=== PATIENT | female | born 1930 | race Caucasian/White ===

== ENCOUNTER → 2016-10-13 | Outpatient (CLI) | payer OTHER, MEDICARE ==
[~2016-10-13] VITALS: Ht 162.6 cm; Wt 51.8 kg
[~2016-10-13] MED LIST: APAP650 PO; ASPIR 8181 MG PO; AUGMENTIN 875875 MG PO; BACTRIM DS TAB1 EACH PO; CITRATE OF MAG296 ML PO; COLACE100 MG PO; FISH OIL 1,001000 M2 PO; HYDROCODON-ACE1 EAC7 PO; HYDROXYZINE HCL25 M1 PO; MOTION SICKNESS25 M1 PO; NABUMETONE 500500 M1 PO; NAPROSYN500 MG PO; PROSTAMEN SOFT1 EACH PO; PROTONIX40 M1 PO; TIZANIDINE HCL 22 M1 PO; TRAMADOL 50 MG50 MG; UNICOMPLEX M TA1 TA1 PO; VITAMIN D2000 UNIT PO; VITAMIN D35000 UNIT PO; VITAMIN E200 UNI4 PO; ZANAFLEX4 MG PO
--- NOTE | ~2016-10-13 | OD ---
[facility] [place] [address] DELIVERY NOTE Name: LOUIS HAY [id number] Admission: 10/13/16 Attend Phys: Zan Louie DO Discharge: Date of : [birth year] Report #: [id number] THIS REPORT FOR: //name// CC: Zan Still MD DATE OF SERVICE: 10/13/2016 DATE OF SERVICE: 10/13/2015 CHIEF COMPLAINT: Neck and head pain. HISTORY OF PRESENT ILLNESS: As you know, the patient is an 86-year-old female with longstanding history of neck and head pain. She apparently was hospitalized for this problem, underwent imaging studies due to vertigo in conjunction with her head and neck pain, for concern of a possible stroke. Findings on the MRI showed no acute findings, though brain atrophy likely age related. It was determined at that point, the patient might be suffering from facet arthropathy of the cervical spine. She was referred to our clinic for evaluation. She indicates no injury, no trauma to the neck or head that may have led to symptoms. She states her pain is continuous, describes the pain as sharp. Places the current pain score at 8/10, daily average at 8/10, worst the pain has been is 8/10. The patient states the pain is exacerbated with movement, improves with pain medication. She has been referred to our clinic to trial injection therapy. PAST MEDICAL HISTORY: 1. Degenerative joint disease. 2. Osteoarthritis. 3. Vertigo, unknown origin. PAST SURGICAL HISTORY: 1. Lung surgery. 2. Cholecystectomy. 3. Appendectomy. SOCIAL HISTORY: The patient denies tobacco, alcohol or IV or illicit drug use. She is retired, retired 20 years ago. She is not receiving workman's compensation nor is she trying to obtain disability benefits. She is not in litigation in regards to her pain. She is accompanied by her , who was present in room today. REVIEW OF SYSTEMS: Positive for weight change, headaches, wearing corrective eyewear, head pain, neck pain, bleeding and bruising tendencies, vertigo. All other review of systems negative per 12-point review of systems other than those [address] [address] DELIVERY NOTE Name: LOUIS HAY Room #: REG [facility].#: [id number] Admission: 10/13/16 Attend Phys: Zan Louie DO Discharge: Date of : [birth year] Report #: [id number] listed in history of present illness. Pain impact score 45/70 indicating moderate interference of daily activities secondary to pain. ALLERGIES: PENICILLIN, CEPHALOSPORINS, CODEINE, AMOXICILLIN. CURRENT MEDICATIONS: Meclizine 25 mg once a day, Tylenol Arthritis 650 mg every 8 hours, multivitamin 1 tab per day, aspirin 81 mg per day, vitamin E 200 units per day, cholecalciferol 5000 units per day, omega-3 fish oil 1000 mg twice a day. IMAGING: CT of head and neck shows ectasia and tortuosity of the carotid arteries in the neck and intracranially, especially on the left without focal aneurysmal dilatation. No focal stenosis or other acute lateralizing abnormalities. There is moderate right maxillary sinus disease, chronic in nature. MRI of cervical spine obtained on 08/27/2016 shows multilevel cervical spondylosis, no significant central canal stenosis, no discrete vocal cord abnormalities. Multilevel right-sided neural foraminal stenosis due to uncovertebral and facet arthropathy, most prominent at C3-C4, moderate to severe neural foraminal stenosis at that level. PHYSICAL EXAMINATION: VITAL SIGNS: Blood pressure 161/90, pulse is 84, respiratory rate 16, unlabored. The patient is 100% on room air. Height 5 feet 4 inches tall, weight 114.2 pounds, BMI calculated at 19.6. GENERAL: Well-developed, well nourished, well hydrated, thin, 86-year-old female appearing stated age, placing pain score today 8/10. HEENT: Normocephalic, atraumatic. Pupils equal, round, reactive to light. Extraocular muscles are intact. Sclerae nonicteric, without injection. Cranial nerves 2-12 grossly intact. Speech is fluent. The patient deemed a fair historian. LUNGS: Clear. No wheezes, rhonchi or rales. CARDIOVASCULAR: Regular. No appreciable gallop or rub. ABDOMEN: Soft, nontender, nondistended, normoactive bowel sounds. EXTREMITIES: Show no clubbing, no cyanosis, no edema. MUSCULOSKELETAL: Upper extremity strength equal and symmetrical 5/5, intact to light touch from C5-T1 dermatomes. Deep tendon reflexes are symmetrical at biceps, brachioradialis and triceps. Spurling's test is negative. There is noted crepitus with movement, with extension, rotation and lateral flexion. Pain is generated with all maneuvers right greater than left. There is palpatory tenderness over the upper cervical region. Deep palpation in the area causes intensification of pain with radiation over the occiput along the lesser and greater occipital nerve distribution on the right when compared to left. [address] [address] DELIVERY NOTE Name: LOUIS HAY Room #: REG [place] Miranda#: [id number] Admission: 10/13/16 Attend Phys: Zan Louie DO Discharge: Date of : [birth year] Report #: [id number] ASSESSMENT: 1. Third occipital neuralgia. 2. Cervical spondylosis without radiculopathy. 3. Osteoarthritis of the cervical region. 4. Chronic intractable pain. PLAN: 1. The patient has been referred to our service for evaluation for cervicalgia leading to headache. After reviewing the patient's MRI and the history she has provided, it appears that she is suffering from third occipital neuralgia radiating over the right portion of the head causing head pain and headache. She is also suffering from facet arthropathy of cervical spine, which is most pronounced at the C3-C4 level on the right. We discussed the patient's treatment options for cervicalgia and cervical headache, also known as a third occipital neuralgia. We discussed physical therapy, stretching exercises as well as traction techniques. We discussed medication management with addition of a consistent nonsteroidal anti-inflammatory in place of her Tylenol Extra Strength. We discussed third occipital nerve blocks, the possibility of utilizing radiofrequency lesioning to address cervical facet pain which has been shown to be mildly effective. We also discussed surgical options. After reviewing risks and benefits of all proposed treatment options, the patient chose third occipital nerve blocks. The patient and I did discuss the risks and benefits of bilateral third occipital nerve blocks. These risks include but are not necessarily limited to bleeding, bruising, infection, worsening pain, no relief of pain, also risk of temporary or permanent muscle weakness, temporary or permanent nerve damage, possible paralysis and . The patient states understood and wished to proceed. 2. The patient will discontinue the use of Tylenol Arthritis, in place we will be using naproxen 500 mg dose 1 tab p.o. t.i.d. I have given the patient #90 tablets with 2 refills. The patient was advised to watch for dyspepsia, worsening blood pressure, lower extremity edema with use of these medications. If she notes any of these side effects, discontinue immediately and call for further instructions. 3. We will see the patient back in followup visit in 2 weeks. At that time, we will discuss the efficacy of the injections provided today. If no long-term efficacy is noted with this type of procedure, could consider moving forward with radiofrequency lesioning. This will be done by my partner, Dr. Manpreet Louie or she may be referred out to another facility for this procedure. We wish to thank you for the opportunity to see the patient in consultation. We will keep you apprised of response to treatment, as we address her cervicalgia and a third occipital headache. Again, we wish to thank you for the opportunity to participate in her care. [address] [address] DELIVERY NOTE Name: LOUIS HAY Room #: REG [facility] Ruben#: [id number] Admission: 10/13/16 Attend Phys: Zan Louie DO Discharge: Date of : [birth year] Report #: [id number] PROCEDURE NOTE DESCRIPTION OF PROCEDURE: Third occipital nerve blocks under fluoroscopic guidance. DESCRIPTION OF PROCEDURE: After obtaining written consent, the patient was taken back to fluoroscopy suite, placed in a prone position with separate pillows under chest and forehead to decrease cervical lordosis. Skin overlying the cervical area prepped and draped in aseptic fashion. The C2-C3 facet joints were identified, both on the left and the right radiographically under AP imaging. The area was then marked directly overlying the area with a marker. We then sterilely prepped the area with chlorhexidine. A 27 gauge 1-1/4 inch needle was then used to anesthetize the skin over each area with 1 mL of 1% lidocaine. A #25 gauge 2 inch needle was advanced under fluoroscopic guidance to the articular pillar of C3 once contacting the bone. We then retracted the needle, approximately 1 mm and noted aspiration be negative for heme or cerebrospinal fluid at this level. This was done on each side. After this negative aspiration of heme or cerebrospinal fluid, 3 mL of a solution containing 1 mL 40 mg per mL, 40 mg total triamcinolone, 2 mL bupivacaine 0.5% was injected on the right side and similar solution injected on the left. [place] were retracted approximately half way, flushed with 1 mL of 1% lidocaine and removed. Sterile bandage was placed over each of the injection sites. The patient tolerated procedure well, carefully escorted to the recovery in stable condition. No apparent complications. The patient noted a reduction of pain from 8/10 to 0/10 ten minutes after procedure. <ELECTRONICALLY SIGNED> By: Zan Louie DO 10/14/16 0757 [id number] Zan Louie DO /nt
[2016-10-13 10:01] VITALS: BP 161/90
== END | disposition home or self-care (01) ==
LOC: PAIN 05:49
DX: M54.81 Occipital neuralgia (principal); M47.22 Other spondylosis with radiculopathy, cervical region; G89.29 Other chronic pain; M19.90 Unspecified osteoarthritis, unspecified site

== ENCOUNTER → 2016-10-27 | Outpatient (CLI) | payer OTHER, MEDICARE ==
[~2016-10-27] VITALS: Ht 162.6 cm; Wt 51.5 kg
--- NOTE | ~2016-10-27 | OD ---
[facility] [place] [address] DELIVERY NOTE Name: LOUIS HAY Room #: REG [facility] Ruben#: [id number] Admission: 10/27/16 Attend Phys: Zan Louie DO Discharge: Date of : [birth year] Report #: [id number] THIS REPORT FOR: //name// CC: Zan Still DATE OF SERVICE: 10/27/2016 DATE OF SERVICE: 10/27/2016 REFERRING PHYSICIAN: Feliciano Still M.D. CHIEF COMPLAINT: Neck pain and head pain. HISTORY OF PRESENT ILLNESS: As you know, the patient is an 86-year-old female with longstanding history of neck pain and head pain. We have seen the patient in consultation on 10/13/2016 where she was diagnosed with third occipital neuralgia, cervical spondylosis without radiculopathy, osteoarthritis of the cervical spine, leading to chronic intractable pain. At that visit, we had the patient undergo third occipital nerve blocks with excellent improvement in symptoms. She is now placing pain score, no greater than 2-3/10. States her pain is mainly on the right side, more in the center of the cervical region. Pain is only mild at this time. She returns today in followup visit to discuss further treatment options if her pain does return. ALLERGIES: PENICILLINS, CEPHALOSPORINS, CODEINE, AMOXICILLIN. CURRENT MEDICATIONS: Naproxen 500 mg twice a day, meclizine 25 mg p.o. q.h.s., acetaminophen arthritis 650 tablet 1 tab p.o. q.h.s., multivitamin 1 tab per day, aspirin 81 mg per day, cholecalciferol 5000 units per day, omega-3 fish oil one tab per day. SOCIAL HISTORY: The patient denies tobacco, alcohol or IV or illicit drug use. She is retired, retired 20 years ago, not receiving workmen's compensation. She is accompanied by her . PHYSICAL EXAMINATION: VITAL SIGNS: Blood pressure 162/84, pulse 80, respiratory rate 16, unlabored. The patient is 100% on room air. Height 5 feet 4 inches tall, weight 113.6 pounds, BMI calculated 19.5. GENERAL: Well-developed, well nourished, well hydrated. An 86-year-old female appearing her stated age. Pain is rated at 2-3/10. HEENT: Normocephalic, atraumatic. Pupils equal, round, reactive to light. Extraocular muscles are intact. Sclerae nonicteric, without injection. Cranial nerves 2-12 grossly intact. Speech fluent. EXTREMITIES: Show no clubbing, no cyanosis, no edema. [address] [address] DELIVERY NOTE Name: LOUIS HAY Room #: REG [facility] Monserrat.Cassi.#: [id number] Admission: 10/27/16 Attend Phys: Zan Louie DO Discharge: Date of : [birth year] Report #: [id number] MUSCULOSKELETAL: Deep palpation over the upper cervical region causes intensification of pain. There is a single trigger points noted in the mid cervical area. There is tender to palpation. No specific radiation of symptoms. Great improvement from a palpatory standpoint over the third occipital nerves bilaterally. Cervical provocation testing including extension, rotation, lateral flexion all intensify cervical pain, right greater than left. ASSESSMENT: 1. Third occipital neuralgia. 2. Cervical spondylosis without radiculopathy. 3. Osteoarthritis of the cervical spine. 4. Chronic intractable pain. PLAN: 1. The patient returns today in followup visit with excellent improvement in her symptoms from the third occipital nerve blocks provided at last visit. The patient and I discussed the efficacy of the shot itself. We had complete resolution of left-sided pain. She has only mild right-sided pain for which she places pain score around 2-3/10. There is a specific single area of discomfort, but this is not causing debilitating pain like prior. Overall, the patient states she is doing very well. She is returning today just to discuss treatment options for pain does return. We have advised the patient if her pain does return to a level of intolerability return and wanted to have her undergo the next in the series of the third occipital nerve blocks for possible radiofrequency lesioning if necessary in the future to address any residual pain. She was given phone number to contact our clinic to return on an as needed basis. I have provided the patient with some Voltaren gel samples 1% solution. The patient will utilize the medication up to 3 times a day to the affected neck area. She will try this for one week. If this is ineffective, switched to the Pennsaid. I have provided in sample form, utilizing this medication 3 times a day. We are determining whether or not her symptoms can be alleviated with topical agents. She was given samples of Voltaren and Pennsaid for a week dosing with each. The patient will return in followup visit on an as needed basis for possible third occipital nerve blocks. If the medications are effective, she is to contact the clinic in regards to continuing the therapy. <ELECTRONICALLY SIGNED> By: Zan oLuie DO 10/28/16 0743 [id number] Zan Louie DO /nt
[2016-10-27 10:24] VITALS: BP 162/84
== END | disposition home or self-care (01) ==
LOC: PAIN 07:14
DX: M47.812 Spondylosis without myelopathy or radiculopathy, cervical region (principal); G89.29 Other chronic pain

== ENCOUNTER → 2017-03-02 | Outpatient (CLI) | payer OTHER, MEDICARE ==
[~2017-03-02] VITALS: Ht 162.6 cm; Wt 51.8 kg
--- NOTE | ~2017-03-02 | HPC ---
[facility] [address] PAIN MANAGEMENT CONSULTATION Name: LOUIS HAY Room #: REG [place] GermanTannerCassi.#: [id number] Admission: 03/02/17 Attend Phys: Zan Louie DO Discharge: Date of : [birth year] Report #: [id number] THIS REPORT FOR: //name// CC: Zan Still MD DATE OF SERVICE: 03/02/2017 REFERRING PHYSICIAN: Feliciano Still M.D. CHIEF COMPLAINT: Neck pain, right head pain. HISTORY OF PRESENT ILLNESS: As you know, the patient is an 86-year-old female who has returned today in followup visit with recurrent right neck pain and head pain. She has had complete resolution of her left neck pain and head pain with third occipital nerve blocks provided on 08/27/2017. She returns today in followup visit per the request of her primary care physician to address the right neck once again with third occipital nerve block in hopes of improving pain. She denies injury or trauma that may have led to return of symptoms. She places pain score 6-7/10, states her pain is sharp, shooting, aching, tenderness and sore in sensation, exacerbated with turning her head, lying down, improves with medications. ALLERGIES: PENICILLIN, CEPHALOSPORINS, CODEINE, AMOXICILLIN. CURRENT MEDICATIONS: See chart. SOCIAL HISTORY: The patient denies tobacco, alcohol, IV or illicit drug use. She retired 20 years ago, unaccompanied. IMAGING: No imaging available. PHYSICAL EXAMINATION: VITAL SIGNS: Blood pressure 153/77, pulse is 83, respiratory rate 14, unlabored. The patient is 100% on room air. Height 5 feet 4 inches tall, weight 114.2 pounds, BMI calculated 19.6. GENERAL: Well developed, well nourished, well hydrated, thin, 86-year-old female appearing her stated age. Pain is rated today at a level of 6-7/10. HEENT: Normocephalic, atraumatic. Pupils equal, round, reactive to light. Extraocular muscles are intact. NEUROLOGIC: Speech fluent. The patient deemed a good historian. LUNGS: Clear, no wheeze, rhonchi or rales. CARDIOVASCULAR: Regular. No appreciable gallop or rub. ABDOMEN: Soft, nontender, nondistended. EXTREMITIES: Show no clubbing, no cyanosis, no edema. [facility] [address] [place] [address] PAIN MANAGEMENT CONSULTATION Name: LOUIS HAY Room #: REG [facility]#: [id number] Admission: 03/02/17 Attend Phys: Zan Louie DO Discharge: Date of : [birth year] Report #: [id number] MUSCULOSKELETAL: Deep palpation of the cervical region on the right causes intensification of pain. Deep palpation of the upper portion of the cervical area causes radiation of symptoms directly over the third occipital nerve distribution. Cervical provocation testing including extension, rotation and lateral flexion to the right causes intensification of pain. ASSESSMENT: 1. Right third occipital neuralgia. 2. Cervical spondylosis without radiculopathy. 3. Osteoarthritis of the cervical spine. 4. Chronic intractable pain. PLAN: 1. The patient returns today in followup visit with 100% improvement of the symptoms she was experiencing from third occipital nerve pain on the left. Unfortunately, her right side has returned. There has been no inciting injury or trauma that may have led to this symptom return. She has requested as her primary care physician requested the patient to undergo third occipital nerve block on the right side to address this right neck and head pain. The patient has been advised the risks and benefits of this procedure. These risks include but are not necessarily limited to bleeding, bruising, infection, worsening pain, no relief of pain, also risk of temporary or permanent muscle weakness, temporary or permanent nerve damage, possible paralysis and . The patient states understood and wished to proceed. 2. No medication changes were made at today's visit, the patient to continue current medical therapy as previously prescribed. 3. The patient to return to our clinic on an as needed basis for possible repeat injection or medication management as necessary. PROCEDURE NOTE DESCRIPTION OF PROCEDURE: Right third occipital nerve block under fluoroscopic guidance. After obtaining written consent, the patient was taken back to fluoroscopy suite, placed in prone position with separate pillows under the chest and forehead to decrease cervical lordosis. Skin overlying the cervical area prepped and draped in aseptic fashion. The C2-C3 facet joints were identified on the right side under AP imaging. The area was then marked sterilely and prepped in with chlorhexidine. A gauge 1-1/4 inch needle was then used to anesthetize skin and subcutaneous tissue over the area with 1 mL of 1% lidocaine. A 25-gauge 2-inch needle was advanced under fluoroscopic guidance to the articular pillar of C3 on the right. Once contacting the bone, the needle was then retracted approximately 1 mm and noted aspiration for both [facility] or [facility] [address] [place] [address] PAIN MANAGEMENT CONSULTATION Name: LOUIS HAY Room #: REG CLLyla Miranda#: [id number] Admission: 03/02/17 Attend Phys: Zan Louie DO Discharge: Date of : [birth year] Report #: [id number] cerebrospinal fluid was negative. After this negative aspiration for heme or cerebrospinal fluid, 3 mL of a solution containing 1 mL 40 mg per mL 40 mg total triamcinolone, 2 mL bupivacaine 0.5% was injected on the right side. Needle was retracted chcf, flushed with 1 mL of 1% lidocaine and removed. A sterile bandage was placed over injection site. The patient tolerated procedure well, carefully escorted to the recovery in stable condition. No apparent complications. After meeting discharge criteria, the patient discharged home. By: [id number] Zan Louie DO /nt
[2017-03-02 08:56] VITALS: BP 153/77
== END ==
LOC: PAIN 06:53
DX: M47.812 Spondylosis without myelopathy or radiculopathy, cervical region (principal); G89.29 Other chronic pain

== ENCOUNTER → 2017-05-07 | Outpatient (CLI) | payer OTHER, MEDICARE ==
[~2017-05-07] VITALS: Ht 162.6 cm; Wt 49.9 kg
== END | disposition home or self-care (01) ==
LOC: GI 09:23
DX: K22.2 Esophageal obstruction (principal); K29.70 Gastritis, unspecified, without bleeding; K44.9 Diaphragmatic hernia without obstruction or gangrene; Z90.49 Acquired absence of other specified parts of digestive tract; Z98.41 Cataract extraction status, right eye; Z96.1 Presence of intraocular lens; Z88.0 Allergy status to penicillin; Z88.8 Allergy status to other drugs, medicaments and biological substances; Z79.82 Long term (current) use of aspirin; Z98.890 Other specified postprocedural states
CPT/HCPCS: 62110; 62900

== ENCOUNTER → 2017-10-19 | Outpatient (CLI) | payer OTHER, MEDICARE ==
[~2017-10-19] MED LIST changes: +AMLODIPINE BESYL5 M1 PO; +PANTOPRAZOLE SO40 M1 PO; +REMERON15 MG PO
== END ==
LOC: HYPER 06:43
DX: T81.31XA Disruption of external operation (surgical) wound, not elsewhere classified, initial encounter (principal); I10 Essential (primary) hypertension; M19.90 Unspecified osteoarthritis, unspecified site; Z85.828 Personal history of other malignant neoplasm of skin; Y92.89 Other specified places as the place of occurrence of the external cause; Y83.8 Other surgical procedures as the cause of abnormal reaction of the patient, or of later complication, without mention of misadventure at the time of the procedure

== ENCOUNTER → 2017-11-03 | Outpatient (CLI) | payer OTHER, MEDICARE | LOC: HYPER 06:47 | DX: T81.31XD Disruption of external operation (surgical) wound, not elsewhere classified, subsequent encounter (principal); M19.90 Unspecified osteoarthritis, unspecified site; I10 Essential (primary) hypertension; Z85.828 Personal history of other malignant neoplasm of skin; Y83.8 Other surgical procedures as the cause of abnormal reaction of the patient, or of later complication, without mention of misadventure at the time of the procedure ==

== ENCOUNTER → 2017-11-16 | Outpatient (CLI) | payer OTHER, MEDICARE | LOC: HYPER 06:50 | DX: T81.31XD Disruption of external operation (surgical) wound, not elsewhere classified, subsequent encounter (principal); M19.90 Unspecified osteoarthritis, unspecified site; I10 Essential (primary) hypertension; Z90.49 Acquired absence of other specified parts of digestive tract; Z98.49 Cataract extraction status, unspecified eye; Z85.828 Personal history of other malignant neoplasm of skin; Y83.8 Other surgical procedures as the cause of abnormal reaction of the patient, or of later complication, without mention of misadventure at the time of the procedure ==

== ENCOUNTER 2017-11-26 11:49 | Inpatient (IN) | payer OTHER, MEDICARE ==
[~2017-11-26] VITALS: Ht 160 cm; Wt 50.0 kg
--- NOTE | ~2017-11-26 | P ---
[facility] [place] [address] PROCEDURE REPORT Name: LOUIS HAY Room #: 203-P [facility] M.R.#: [id number] Admission: 11/26/17 Attend Phys: Feliciano Still MD Discharge: Date of : [birth year] Report #: [id number] THIS REPORT FOR: //name// CC: Feliciano Still MD BRIEF HISTORY: The patient is an 87-year-old woman well known to me with a history of dysphagia and previous esophageal dilations for a Schatzki ring. She has recurrent solid food dysphagia. PREOPERATIVE DIAGNOSIS: History of ring with dysphagia. POSTOPERATIVE DIAGNOSES: 1. Schatzki ring. 2. Small hiatus hernia. 3. Diffuse gastritis. MEDICATIONS: Deep sedation with propofol per anesthesia. SPECIMEN: None. ESTIMATED BLOOD LOSS: None. PROCEDURE: EGD and Can dilation. FINDINGS: Prior to propofol sedation, procedure of upper endoscopy discussed with the patient as well as potential risks of upper endoscopy and dilation was discussed with the patient as well as potential risks and its complications. She indicates she understands and desires to proceed. DESCRIPTION OF PROCEDURE: With the patient in left lateral decubitus position, the Sleep[employer] video endoscope was inserted in the cervical esophagus under direct vision without difficulty. Examination of this organ through its entire length revealed normal esophageal mucosa down the squamocolumnar junction. Squamocolumnar junction was inspected and noted to be unremarkable. She has a history of a Schatzki ring, which has been previously described. I did not see definite ring today, but a mild ring certainly may be present. 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 There was no evidence of esophagitis, Robb's mucosa or mass lesions. A small, less than 2 cm sliding type hiatus hernia was intermittently seen. Scope was advanced in the stomach, was examined on end view as well as retroflexed views. There was a diffuse gastritis. She has had previous biopsies which have been negative for H. pylori in the past. Additional biopsies were not obtained today. The pylorus, duodenal bulb and postbulbar sweep were inspected and noted to be unremarkable. At that point, the scope was withdrawn and careful circumferential views confirmed the above findings. The patient tolerated the procedure well. [address] [address] PROCEDURE REPORT Name: LOUIS HAY Room #: 203-P [facility] M.R.#: [id number] Admission: 11/26/17 Attend Phys: Feliciano Still MD Discharge: Date of : 09[birth year] Report #: [id number] DISPOSITION: The patient with recurrent solid food dysphagia. She was dilated with a 52 54-Al[place]ian Can dilator without difficulty. She has had good benefit from dilation in the past and she should continue to follow up and have repeat dilation on an as needed basis as indicated by her symptoms. In addition, she does have some evidence of presbyesophagus, which is likely a potential fact with regard to dysphagia as well. <ELECTRONICALLY SIGNED> By: Beck Darling MD 11/30/17 1617 1202 [id number] Beck Darling MD /nt
--- NOTE | ~2017-11-26 | EKG ---
[address] [place] [address] ELECTROCARDIOGRAM REPORT Name: LOUIS HAY Room #: 203-P ADM IN M.R.#: [id number] Admission: 11/26/17 Attend Phys: Feliciano Still MD Discharge: Date of : [birth year] Report #: [id number] THIS REPORT FOR: //name// [facility] ED Test Date: 2017-11-26 Test Time: 12:04:55 Pat Name: LOUIS HAY Department: Room: 203 Gender: F [employer]ur[employer] Supervisor: JOSE : 1930 Requested By: Cody Fields Order Number: [id number] MD: Nicola Pat Measurements Intervals [place] Rate: 76 P: 57 ID: [id number] QRS: 37 QRSD: 76 T: 56 QT: 386 QTc: 435 Interpretive Statements Sinus rhythm No significant abnormality Compared to ECG 08/24/2016 16:19:55 No significant changes Electronically Signed On 11-28-2017 15:12:12 SURGERY NURSE by Nicola Pat [email or web address] <ELECTRONICALLY SIGNED> By: Nicloa Pat MD, [facility] 11/28/17 1512 D: 02/1203 1204 Nicola Pat MD, FACC /EPI
[~2017-11-26 11:49] MED LIST changes: -AMLODIPINE BESYL5 M1 PO; -PANTOPRAZOLE SO40 M1 PO; -REMERON15 MG PO
[2017-11-26 11:50] VITALS: BP 193/91
[2017-11-26 12:50] LABS: HEMATOCRIT 35.3 % (37.0-47.0); HEMOGLOBIN 12.3 gm/dL (12.0-15.0); MCH 30.7 pg (26.0-34.0); MCHC 34.9 g/dL (28.0-37.0); PLATELET COUNT 233 thou/uL (150-400); RBC 4.02 mil/uL (4.20-5.00); WBC 3.5 thou/uL (4.0-11.0)
[2017-11-26 12:58] LABS: CALCIUM 9.6 mg/dL (8.5-10.1); CREATININE 0.5 mg/dL (0.6-1.0); POTASSIUM 3.9 mmol/L (3.5-5.1)
[2017-11-26 13:04] LABS: ALBUMIN 3.2 g/dL (3.4-5.0); TOTAL BILIRUBIN 0.4 mg/dL (<0.1-1.0); TOTAL PROTEIN 6.6 g/dL (6.4-8.2)
[2017-11-26 13:21] LABS: ATYPICAL LYMPHS 2 %; METAMYELOCYTES 1 %
[2017-11-26 13:22] LABS: ANISOCYTOSIS SLIGHT
[2017-11-26 13:36] LABS: URINE BILIRUBIN NEGATIVE (Negative); URINE BLOOD NEGATIVE (Negative); URINE CLARITY CLEAR; URINE COLOR YELLOW; URINE GLUCOSE-RANDOM* NEGATIVE (Negative); URINE KETONES NEGATIVE (Negative); URINE LEUKOCYTES-REFLEX 2+ (Negative); URINE NITRITE-REFLEX NEGATIVE (Negative); URINE PROTEIN (DIPSTICK) NEGATIVE (Negative); URINE UROBILINOGEN 0.2 E.U./dl (0.2-1.0)
[2017-11-26 13:44] LABS: BACTERIA-REFLEX 1-9 Few /HPF (None Seen); CASTS None Seen /LPF (None Seen); CRYSTALS None Seen /LPF (None Seen); SQUAMOUS 0-3 Few /LPF (0-3); URINE WBC-REFLEX 0-5 Rare /HPF (0-5)
[2017-11-26 13:45] LABS: URINE RBC None Seen /HPF (0-2)
[2017-11-26 15:05] VITALS: BP 193/91
[2017-11-26 15:48] VITALS: BP 157/76
[2017-11-26 21:05] VITALS: BP 190/113
[2017-11-27 00:06] VITALS: BP 144/67
[2017-11-27 04:44] VITALS: BP 179/91
[2017-11-27 07:46] VITALS: BP 173/91
[2017-11-27 11:05] VITALS: BP 149/86
[2017-11-27 15:24] VITALS: BP 195/97
[2017-11-27 19:47] VITALS: BP 156/79
[2017-11-28 04:43] VITALS: BP 190/100
[2017-11-28 06:03] VITALS: BP 181/86
[2017-11-28 08:48] LABS: HEMATOCRIT 40.1 % (37.0-47.0); HEMOGLOBIN 13.8 gm/dL (12.0-15.0); MCH 30.6 pg (26.0-34.0); MCHC 34.4 g/dL (28.0-37.0); MCV 88.8 fL (80.0-100.0); RBC 4.52 mil/uL (4.20-5.00); RDW 13.3 % (10.5-14.5); WBC 4.4 thou/uL (4.0-11.0)
[2017-11-28 08:59] LABS: CALCIUM 9.5 mg/dL (8.5-10.1); CREATININE 0.6 mg/dL (0.6-1.0); POTASSIUM 3.5 mmol/L (3.5-5.1)
[2017-11-28 11:20] VITALS: BP 133/66
[2017-11-28 15:40] VITALS: BP 166/84
[2017-11-28 19:37] VITALS: BP 120/87
[2017-11-28 23:12] VITALS: BP 148/71
[2017-11-29 03:17] VITALS: BP 160/94
[2017-11-29 08:00] VITALS: BP 162/73
[2017-11-29 16:00] VITALS: BP 145/97
[2017-11-29 20:30] VITALS: BP 112/52
[2017-11-30 04:46] VITALS: BP 150/75
[2017-11-30 07:22] VITALS: BP 164/74
[2017-11-30 11:13] VITALS: BP 127/65
[2017-11-30 15:05] VITALS: BP 170/85
[2017-11-30 20:06] VITALS: BP 169/74
[2017-12-01 05:01] VITALS: BP 146/68
[2017-12-01] MEDS ORDERED: AMLODIPINE BESYL5 M1 PO (07:20)
[2017-12-01] MEDS ORDERED: REMERON15 MG PO (07:20)
[2017-12-01] MEDS ORDERED: PANTOPRAZOLE SO40 M1 PO (07:20)
[2017-12-01 07:41] VITALS: BP 146/68
[2017-12-01 07:45] VITALS: BP 130/73
== END 2017-12-01 07:51 | disposition home health service (06) | DRG 683 ==
LOC: ER 11:49 → 2N 14:02 → EROBS 14:02 → 2N 15:46
PROVIDERS: Family Medicine; Physician Assistant
PROC: 0D758ZZ Dilation of Esophagus, Via Natural or Artificial Opening Endoscopic (ICD-10-PCS; principal; 2017-11-26)
DX: N17.9 Acute kidney failure, unspecified (principal); E87.1 Hypo-osmolality and hyponatremia; Z96.1 Presence of intraocular lens; K22.2 Esophageal obstruction; K44.9 Diaphragmatic hernia without obstruction or gangrene; K29.70 Gastritis, unspecified, without bleeding; R13.10 Dysphagia, unspecified; F41.9 Anxiety disorder, unspecified; I10 Essential (primary) hypertension; F32.9 Major depressive disorder, single episode, unspecified; R53.81 Other malaise; G47.00 Insomnia, unspecified; K59.00 Constipation, unspecified; Z90.49 Acquired absence of other specified parts of digestive tract; Z98.41 Cataract extraction status, right eye; Z79.899 Other long term (current) drug therapy; Z79.82 Long term (current) use of aspirin; Z88.1 Allergy status to other antibiotic agents; Z88.6 Allergy status to analgesic agent; Z88.0 Allergy status to penicillin; Z88.2 Allergy status to sulfonamides
CPT/HCPCS: 10194; 62110; 62900; 70005

== ENCOUNTER → 2017-12-01 | Outpatient (CLI) | payer OTHER, MEDICARE ==
[~2017-12-01] MED LIST changes: +AMLODIPINE BESYL5 M1 PO; +PANTOPRAZOLE SO40 M1 PO; +REMERON15 MG PO
== END ==
LOC: HYPER
DX: T81.31XD Disruption of external operation (surgical) wound, not elsewhere classified, subsequent encounter (principal); M19.90 Unspecified osteoarthritis, unspecified site; I10 Essential (primary) hypertension; Z90.49 Acquired absence of other specified parts of digestive tract; Z98.49 Cataract extraction status, unspecified eye; Z85.828 Personal history of other malignant neoplasm of skin; Y83.8 Other surgical procedures as the cause of abnormal reaction of the patient, or of later complication, without mention of misadventure at the time of the procedure

== ENCOUNTER → 2017-12-10 | Outpatient (CLI) | payer OTHER, MEDICARE | LOC: HYPER 12-08 09:38 | DX: T81.31XD Disruption of external operation (surgical) wound, not elsewhere classified, subsequent encounter (principal); I10 Essential (primary) hypertension; M19.90 Unspecified osteoarthritis, unspecified site; Z85.828 Personal history of other malignant neoplasm of skin; Y83.8 Other surgical procedures as the cause of abnormal reaction of the patient, or of later complication, without mention of misadventure at the time of the procedure ==

== ENCOUNTER → 2017-12-23 | Outpatient (CLI) | payer OTHER, MEDICARE | LOC: HYPER 12-22 14:25 | DX: T81.31XD Disruption of external operation (surgical) wound, not elsewhere classified, subsequent encounter (principal); M19.90 Unspecified osteoarthritis, unspecified site; I10 Essential (primary) hypertension; Y83.8 Other surgical procedures as the cause of abnormal reaction of the patient, or of later complication, without mention of misadventure at the time of the procedure ==

== ENCOUNTER → 2018-01-06 | Outpatient (CLI) | payer OTHER, MEDICARE | LOC: HYPER 07:18 | DX: T81.31XD Disruption of external operation (surgical) wound, not elsewhere classified, subsequent encounter (principal); I10 Essential (primary) hypertension; M19.90 Unspecified osteoarthritis, unspecified site; Z85.828 Personal history of other malignant neoplasm of skin; Y83.8 Other surgical procedures as the cause of abnormal reaction of the patient, or of later complication, without mention of misadventure at the time of the procedure ==

== ENCOUNTER → 2018-01-20 | Outpatient (CLI) | payer OTHER, MEDICARE | LOC: HYPER 06:53 | DX: T81.31XD Disruption of external operation (surgical) wound, not elsewhere classified, subsequent encounter (principal); I10 Essential (primary) hypertension; M19.90 Unspecified osteoarthritis, unspecified site; Z85.828 Personal history of other malignant neoplasm of skin; Y83.8 Other surgical procedures as the cause of abnormal reaction of the patient, or of later complication, without mention of misadventure at the time of the procedure ==

== ENCOUNTER → 2018-02-03 | Outpatient (CLI) | payer OTHER, MEDICARE | LOC: HYPER 06:41 | DX: T81.31XD Disruption of external operation (surgical) wound, not elsewhere classified, subsequent encounter (principal); I10 Essential (primary) hypertension; M19.90 Unspecified osteoarthritis, unspecified site; Z85.828 Personal history of other malignant neoplasm of skin; Y83.8 Other surgical procedures as the cause of abnormal reaction of the patient, or of later complication, without mention of misadventure at the time of the procedure ==

== ENCOUNTER → 2018-03-17 | Outpatient (CLI) | payer OTHER, MEDICARE | LOC: HYPER 06:47 | DX: T81.31XD Disruption of external operation (surgical) wound, not elsewhere classified, subsequent encounter (principal); I10 Essential (primary) hypertension; M19.90 Unspecified osteoarthritis, unspecified site; Y83.8 Other surgical procedures as the cause of abnormal reaction of the patient, or of later complication, without mention of misadventure at the time of the procedure ==